=== PATIENT | female | born 1965 | race Caucasian/White ===

== ENCOUNTER 2019-10-11 11:08 | Outpatient (CLI) | payer OTHER ==
--- NOTE | 2019-10-11 16:46 | XRAY Report ---
Reason: T SPINE PAIN Procedure Date: 10/11/2019 Accession Number: [id number] / [id number] Procedure: XRS - Thoracic Spine 2 View CPT Code: Final Report FULL RESULT: EXAM: THORACIC SPINE RADIOGRAPHY EXAM DATE: 10/11/2019 02:39 PM. CLINICAL HISTORY: Upper spine pain. COMPARISON: None. TECHNIQUE: 2 views. FINDINGS: Alignment: No spondylolisthesis or scoliosis. Bones: The osseous structures are demineralized which does limit full characterization of the cortices. Endplate concavity noted diffusely. There is mild loss of vertebral body height of T9 (approximately 10%), chronicity uncertain. Disks: Grossly normal disk heights. Soft Tissues: No paraspinal widening. The visualized lung and cardia mediastinal contours are normal. Her clips in the right upper quadrant presumably secondary to prior cholecystectomy. IMPRESSION: 1. Mild diffuse loss of height of the T9 vertebral body, chronicity uncertain. 2. Demineralization. RADIA
== END 2019-10-11 11:09 | disposition home or self-care (01) ==
LOC: DI.S 11:08
PROVIDERS: ATTEND Naturopath
DX: M54.6 Pain in thoracic spine (principal); M81.0 Age-related osteoporosis without current pathological fracture
CPT/HCPCS: 72070

== ENCOUNTER 2021-08-05 10:31 | Emergency (ER) | payer BC, OTHER ==
--- NOTE | 2021-08-05 12:06 | ED Physician Documentation ---
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 There is some chest tightness with it. No pedal edema or calf pain no recent travel. No hemoptysis. Does have a mild cough without production. Review of Systems Ten Systems: 10 systems reviewed and negative Constitutional: reports: Fatigue. denies: Fever, Chills Cardiac: reports: Chest pain / pressure. 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 : Kidney stones HEENT: Chronic vision loss, Dental implants Psych: Depression Musculoskeletal: None Derm: None - Past Surgical History Past Surgical History: Yes Cardiovascular: Pacemaker - Present Medications Home Medications: Ambulatory Orders Medication Instructions Recorded Confirmed Albuterol Sulf [Ventolin Hfa 1 - 2 puffs INH Q4HR PRN #1 inhaler 08/05/21 Inhaler] - Allergies Allergies/Adverse Reactions: Allergies Allergy/AdvReac Type Severity Reaction Status Date / Time No Known Drug Allergies Allergy Verified 08/05/21 10:45 - Social History Does the pt smoke?: No Smoking Status: Never smoker Does the pt drink ETOH?: No Does the pt have substance abuse?: No - Immunizations Immunizations are current?: Yes - POLST Patient has POLST: Yes PD ED PE NORMAL - Vitals Vital signs reviewed: Yes - General General: Alert and oriented X 3, No acute distress - HEENT HEENT: PERRL, EOMI - Neck Neck: Supple, no meningeal sign, No bony TTP, No JVD - Cardiac Cardiac: RRR (paced on monitor), No murmur - Respiratory Respiratory: No respiratory distress, Clear bilaterally - Abdomen Abdomen: Soft, Non tender - Back Back: No CVA TTP, No spinal TTP - Derm Derm: Normal color, Warm and dry - Extremities Extremities: No edema, No calf tenderness / cord - Neuro Neuro: Alert and oriented X 3, Normal speech Results - Vitals Vitals: Vital Signs - 24 hr 08/05/21 10:37 Temperature 36.3 C L Heart Rate 83 Respiratory 15 Rate Blood Pressure 125/91 H O2 Saturation 99 Oxygen O2 Source Room air - Labs Labs: Laboratory Tests 08/05/21 08/05/21 08/05/21 12:21 12:21 12:21 WBC 4.6 L RBC 5.36 Hgb 15.0 Hct 46.2 MCV 86.2 MCH 28.0 MCHC 32.5 RDW 13.1 Plt Count 212 MPV 9.6 Neut # (Auto) 2.4 Lymph # (Auto) 1.8 [place] # (Auto) 0.3 Eos # (Auto) 0.1 Baso # (Auto) 0.1 Absolute Nucleated RBC 0.00 Nucleated RBC % 0.0 D-Dimer 218.1 Sodium 141 Potassium 4.1 Chloride 105 Carbon Dioxide 25 Anion Gap 11.0 BUN 25 H Creatinine 1.0 Estimated GFR (MDRD) 57 L Glucose 92 Calcium 10.0 Troponin I High Sens B-Natriuretic Peptide 08/05/21 08/05/21 12:21 12:21 WBC RBC Hgb Hct MCV MCH MCHC RDW Plt Count MPV Neut # (Auto) Lymph # (Auto) [place] # (Auto) Eos # (Auto) Baso # (Auto) Absolute Nucleated RBC Nucleated RBC % D-Dimer Sodium Potassium Chloride Carbon Dioxide Anion Gap BUN Creatinine Estimated GFR (MDRD) Glucose Calcium Troponin I High Sens 3.4 B-Natriuretic Peptide 15 - Rads (name of study) 1v cxr Radiology: EMP read contemporaneously (PPM, NAD) PD MEDICAL DECISION MAKING - ED course ED course: 56-year-old woman presents with dyspnea on exertion, no evidence of ACS, PE, or heart failure, was screened for all the above by diagnostics. It all started after running out of her inhaler so we will refill that. Departure - Departure Disposition: 01 Home, Self Care Clinical Impression: Dyspnea Qualifiers: Dyspnea type: dyspnea on exertion Qualified Code(s): R06.00 - Dyspnea, unspecified Condition: Good Record reviewed to determine appropriate education?: Yes Instructions: ED Dyspnea Shortness of Breath Prescriptions: Albuterol Sulf [Ventolin Hfa Inhaler] 1 - 2 puffs INH Q4HR PRN #1 inhaler PRN Reason: Shortness Of Air/Wheezing Comments: You are seen today for exertional shortness of breath. Thankfully your work-up was unremarkable with an unremarkable chest x-ray, troponin, BNP, and D-dimer were all negative screening for coronary syndrome, heart failure, and blood clots respectively. I am refilling your albuterol inhaler which we think will help. Follow-up with your doctor regardless and return for new or worsening symptoms.
[2021-08-05 12:28] LABS: BASOPHILS # (AUTO) 0.1 10^3/uL (0.0-0.1); BASOPHILS % (AUTO) 1.1 %; EOSINOPHILS # (AUTO) 0.1 10^3/uL (0.0-0.7); EOSINOPHILS % (AUTO) 1.3 %; HCT - HEMATOCRIT 46.2 % (37.0-47.0); LYMPHOCYTES # (AUTO) 1.8 10^3/uL (1.5-3.5); LYMPHOCYTES % (AUTO) 39.2 %; MEAN CORPUSCULAR HGB CONC 32.5 g/dL (32.0-36.0); MEAN CORPUSCULAR VOLUME 86.2 fL (81.0-99.0); MEAN PLATELET VOLUME 9.6 fL (7.9-10.8); MONOCYTES # (AUTO) 0.3 10^3/uL (0.0-1.0); MONOCYTES % (AUTO) 6.3 %; NEUTROPHILS # (AUTO) 2.4 10^3/uL (1.5-6.6); NEUTROPHILS % (AUTO) 51.9 %; PLT - PLATELET COUNT 212 10^3/uL (130-450); RED BLOOD COUNT 5.36 10^6/uL (4.20-5.40); RED CELL DISTRIBUTION WIDTH 13.1 % (12.0-15.0); WHITE BLOOD COUNT 4.6 x10^3/uL (4.8-10.8)
--- NOTE | 2021-08-05 12:33 | XRAY Report ---
PROCEDURE: Chest 1 View X-Ray INDICATIONS: dyspnea TECHNIQUE: One view of the chest was acquired. COMPARISON: None FINDINGS: Surgical changes and devices: Left chest wall dual-lead cardiac pacer. Lungs and pleura: No pleural effusions or pneumothorax. Lungs are clear. Mediastinum: Mediastinal contours appear normal. Heart size is normal. Bones and chest wall: No suspicious bony lesions. Overlying soft tissues appear unremarkable. IMPRESSION: No acute cardiopulmonary disease process. Reviewed by: Anila Mckeon MD, PhD on 08/05/2021 12:31 PM PST Approved by: Anila Mckeon MD, PhD on 08/05/2021 12:31 PM PST Station ID: [id number]
[2021-08-05 12:46] LABS: POTASSIUM 4.1 mmol/L (3.5-5.0)
[2021-08-05 13:41] VITALS: BP 124/88
== END 2021-08-05 13:30 | disposition home or self-care (01) ==
LOC: ED 10:31
DX: R06.09 Other forms of dyspnea (principal)
CPT/HCPCS: 36415; 80048; 83880; 84484; 85025; 85379; 99283; 99284

== ENCOUNTER 2021-10-22 10:35 | Emergency (ER) | payer BC ==
--- NOTE | 2021-10-22 11:04 | ED Physician Documentation ---
PD HPI HEENT - Stated complaint Stated Complaint: VERTIGO - Chief complaint Chief Complaint: Neuro - History obtained from History obtained from: Patient - History of Present Illness Timing - onset: How many days ago (2) Timing - duration: Days (2) Timing - details: Abrupt onset, Still present, Intermittant (has symptoms when moves head, improves with staying still.) Location: Other (vertigo. NO visual loss.) Worsens: Position (movement of head.) Associated symptoms: No: Fever, Congestion, Rhinorrhea, Headache Similar symptoms before: Has not had sx before Recently seen: Not recently seen Review of Systems Constitutional: denies: Fever, Chills, Myalgias Eyes: denies: Loss of vision, Decreased vision Ears: denies: Loss of hearing, Ear pain, Drainage/discharge, Tinnitus/ringing Nose: denies: Rhinorrhea / runny nose, Congestion Throat: denies: Sore throat Respiratory: denies: Cough GI: reports: Nausea (associated with the vertigo.). 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 : Kidney stones HEENT: Chronic vision loss, Dental implants Psych: Depression Musculoskeletal: None Derm: None - Past Surgical History Past Surgical History: Yes Cardiovascular: Pacemaker - Present Medications Home Medications: Ambulatory Orders Medication Instructions Recorded Confirmed Beclomethasone Dipropionate [Qvar 1 puffs INH BID 10/22/21 10/22/21 Redihaler (40 mcg)] Bupropion HCl [Wellbutrin Xl] 300 mg PO DAILY 10/22/21 10/22/21 Fluoxetine HCl [Prozac] 40 mg PO DAILY 10/22/21 10/22/21 Meclizine HCl [Motion Sickness] 25 mg PO Q6H PRN #30 tablet 10/22/21 amLODIPine [Norvasc] 5 mg PO DAILY 10/22/21 10/22/21 dexAMETHasone [Decadron] 4 mg PO DAILY #5 tablet 10/22/21 diazePAM [Valium] 5 mg PO TID PRN #12 tablet 10/22/21 traZODone [Desyrel] 50 mg PO HS PRN 10/22/21 10/22/21 - Allergies Allergies/Adverse Reactions: Allergies Allergy/AdvReac Type Severity Reaction Status Date / Time No Known Drug Allergies Allergy Verified 10/22/21 10:51 - Social History Does the pt smoke?: No Smoking Status: Never smoker Does the pt drink ETOH?: No Does the pt have substance abuse?: No - Immunizations Immunizations are current?: Yes - POLST Patient has POLST: Yes PD ED PE NORMAL - Vitals Vital signs reviewed: Yes - General General: Alert and oriented X 3, No acute distress, Well developed/nourished - HEENT HEENT: PERRL, EOMI (with some nystagmus noted to right side. 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, No motor deficit, No sensory deficit, Normal speech Eye Opening: Spontaneous Motor: Obeys Commands Verbal: Oriented GCS Score: 15 Results - Vitals Vitals: Vital Signs - 24 hr 10/22/21 10/22/21 10:47 13:08 Temperature 36.3 C L 36.8 C Heart Rate 77 71 Respiratory 18 16 Rate Blood Pressure 131/79 H 125/83 H O2 Saturation 99 97 Oxygen O2 Source Room air - Labs Labs: Laboratory Tests 10/22/21 11:27 Sodium 138 Potassium 3.7 Chloride 105 Carbon Dioxide 26 Anion Gap 7.0 BUN 17 Creatinine 1.0 Estimated GFR (MDRD) 57 L Glucose 110 H Calcium 8.5 Total Bilirubin 0.7 AST 36 ALT 57 Alkaline Phosphatase 90 C-Reactive Protein < 1.0 Total Protein 6.5 L Albumin 3.6 Globulin 2.9 Albumin/Globulin Ratio 1.2 Lipase 28 PD MEDICAL DECISION MAKING - ED course Complexity details: considered differential (positional vertigo that abates with resting, associated with nystagmus and no other neuro symptoms. Onset after having head down for awhile dying hair. Persists with head movement. ), d/w patient Departure - Departure Disposition: 01 Home, Self Care Clinical Impression: Positional vertigo Condition: Stable Record reviewed to determine appropriate education?: Yes Instructions: ED Vertigo Unspecified Follow-Up: LYALA ESTEVEZ ARNP [Primary Care Provider] - Prescriptions: dexAMETHasone [Decadron] 4 mg PO DAILY #5 tablet Meclizine HCl [Motion Sickness] 25 mg PO Q6H PRN #30 tablet PRN Reason: Vertigo diazePAM [Valium] 5 mg PO TID PRN #12 tablet PRN Reason: Vertigo Comments: This sounds like an inner ear dysfunction which can be mechanical due to small bits of calcifications having tumbled onto the nerves in the balance center of the inner ear. This can sometimes be relieved mechanically with a maneuvers called the Bertram maneuvers. You can look online for that and try to reproduce those at home and see if it helps. Otherwise this can be caused by some inflammation in the inner ear at times as well. It does not really sound infectious nor traumatic. I would suggest trying the Bertram maneuvers at home in conjunction with some Decadron steroid daily for the next 5 days. To that add meclizine 25 mg every 8 hours if needed for vertigo/dizziness. You can supplement that with diazepam as needed as directed which also has a good antivertigo effect. Recheck if not improved well over the next few days and return if worse or any other associated symptoms. I transmitted your prescriptions to [facility] in [place]. Discharge Date/Time: 10/22/21 13:18
[2021-10-22] MEDS: diazePAM 5 MG TABLET PO STA (11:35)
[2021-10-22] MEDS: DEXAMETHASONE 10 MG/ML VIAL PO STA (11:35)
[2021-10-22] MEDS: MECLIZINE 12.5 MG TABLET PO STA ×2 (11:35→13:03)
[2021-10-22] MEDS: CHERRY SYRUP 10 ML UDC PO ONE (11:35)
[2021-10-22 11:57] LABS: ALBUMIN 3.6 g/dL (3.2-5.5); ALBUMIN/GLOBULIN RATIO 1.2 (1.0-2.2); ALKALINE PHOSPHATASE 90 IU/L (42-121); ALT ALANINE AMINOTRANSFERASE 57 IU/L (10-60); AST ASPARTATE AMINOTRANSFERASE 36 IU/L (10-42); BILIRUBIN,TOTAL 0.7 mg/dL (0.2-1.0); BUN - BLOOD UREA NITROGEN 17 mg/dL (6-20); CALCIUM 8.5 mg/dL (8.5-10.3); CARBON DIOXIDE - CO2 26 mmol/L (21-32); CHLORIDE 105 mmol/L (101-111); GFR - MDRD 57 (>89); GLUCOSE 110 mg/dL (70-100); LIPASE 28 U/L (22-51); POTASSIUM 3.7 mmol/L (3.5-5.0); SODIUM 138 mmol/L (135-145); TOTAL PROTEIN 6.5 g/dL (6.7-8.2)
[2021-10-22 12:00] LABS: CRP - C-REACTIVE PROTEIN < 1.0 mg/dL (0-1.0)
[2021-10-22 13:09] VITALS: BP 125/83
== END 2021-10-22 13:18 | disposition home or self-care (01) ==
LOC: ED 10:35
DX: H81.10 Benign paroxysmal vertigo, unspecified ear (principal); I10 Essential (primary) hypertension
CPT/HCPCS: 36415; 80053; 83690; 86140; 99282; 99283; A9270

== ENCOUNTER 2023-09-16 07:56 | Outpatient (CLI) | payer BC ==
[2023-09-16 08:31] LABS: BASOPHILS # (AUTO) 0.1 10^3/uL (0.0-0.1); BASOPHILS % (AUTO) 1.2 %; EOSINOPHILS # (AUTO) 0.1 10^3/uL (0.0-0.7); EOSINOPHILS % (AUTO) 2.2 %; HCT - HEMATOCRIT 44.4 % (37.0-47.0); HGB - HEMOGLOBIN 14.4 g/dL (12.0-16.0); LYMPHOCYTES # (AUTO) 1.9 10^3/uL (1.5-3.5); LYMPHOCYTES % (AUTO) 46.9 %; MEAN CORPUSCULAR HEMOGLOBIN 28.1 pg (27.0-31.0); MEAN CORPUSCULAR HGB CONC 32.4 g/dL (32.0-36.0); MEAN CORPUSCULAR VOLUME 86.7 fL (81.0-99.0); MEAN PLATELET VOLUME 9.7 fL (7.9-10.8); MONOCYTES # (AUTO) 0.4 10^3/uL (0.0-1.0); MONOCYTES % (AUTO) 8.6 %; NEUTROPHILS # (AUTO) 1.7 10^3/uL (1.5-6.6); NEUTROPHILS % (AUTO) 40.9 %; PLT - PLATELET COUNT 172 10^3/uL (130-450); RED BLOOD COUNT 5.12 10^6/uL (4.20-5.40); RED CELL DISTRIBUTION WIDTH 12.9 % (12.0-15.0); WHITE BLOOD COUNT 4.1 x10^3/uL (4.8-10.8)
[2023-09-16 08:46] LABS: ALBUMIN 4.2 g/dL (3.2-5.5); ALBUMIN/GLOBULIN RATIO 1.8 (1.0-2.2); ALKALINE PHOSPHATASE 73 IU/L (42-121); ALT ALANINE AMINOTRANSFERASE 29 IU/L (10-60); AST ASPARTATE AMINOTRANSFERASE 25 IU/L (10-42); BILIRUBIN,TOTAL 0.4 mg/dL (0.2-1.0); BUN - BLOOD UREA NITROGEN 24 mg/dL (6-20); CALCIUM 9.5 mg/dL (8.5-10.3); CARBON DIOXIDE - CO2 29 mmol/L (21-32); CHLORIDE 107 mmol/L (101-111); CHOL/HDL RATIO 4.3 (<4.4); CHOLESTEROL 238 mg/dL; GFR - MDRD 57 (>89); GLUCOSE 91 mg/dL (74-104); HDL CHOLESTEROL 56 mg/dL; LDL CHOLESTEROL,CALCULATED 154 mg/dL; LDL/HDL RATIO 2.8 (<4.4); POTASSIUM 4.3 mmol/L (3.5-4.5); SODIUM 141 mmol/L (135-145); TOTAL PROTEIN 6.5 g/dL (6.4-8.9); TRIGLYCERIDES 138 mg/dL (48-352); VLDL CHOLESTEROL 28 mg/dL
[2023-09-16 09:01] LABS: THYROID STIMULATING HORMONE 4.77 uIU/mL (0.34-5.60)
[2023-09-16 11:24] LABS: ESTIMATED AVERAGE GLUCOSE 111 mg/dL (70-100); HEMOGLOBIN A1c% 5.5 % (4.27-6.07)
[2023-09-17 03:09] LABS: HIV SCREEN 4TH GENERATION Non Reactive (Non Reactive)
== END 2023-09-16 07:57 | disposition home or self-care (01) ==
LOC: LAB 07:56
PROVIDERS: ATTEND Internal Medicine
DX: Z00.00 Encounter for general adult medical examination without abnormal findings (principal); D86.85 Sarcoid myocarditis; E78.5 Hyperlipidemia, unspecified; R53.83 Other fatigue
CPT/HCPCS: 36415; 80048; 80053; 80061; 82533; 83036; 83721; 84443; 85025; 87389